=== PATIENT | male | born 1955 ===

== ENCOUNTER 2017-02-22 14:36 | Outpatient (RCR) | payer BC | END 2017-03-05 | disposition home or self-care (01) | LOC: WCC 14:36 | DX: G89.4 Chronic pain syndrome (principal); E08.65 Diabetes mellitus due to underlying condition with hyperglycemia; E11.42 Type 2 diabetes mellitus with diabetic polyneuropathy; I10 Essential (primary) hypertension; Z90.49 Acquired absence of other specified parts of digestive tract; Z88.6 Allergy status to analgesic agent | CPT/HCPCS: 82962; G0277; G0463 ==

== ENCOUNTER 2017-03-06 17:42 | Outpatient (RCR) | payer BC, SELFPAY | END 2017-04-05 | disposition home or self-care (01) | LOC: WCC 17:42 | DX: Z53.9 Procedure and treatment not carried out, unspecified reason (principal) ==